=== PATIENT | female | born 1945 | race Caucasian/White ===

== ENCOUNTER → 2016-10-13 | Outpatient (CLI) | payer MEDICARE, MEDICAID ==
[~2016-10-13] MED LIST: AMBIEN 5MG TABLE5 MG PO; AMBIEN10 MG PO; ARICEPT10 MG PO; ARICEPT5 MG PO; ATIVAN 0.50.5 MG/TAB PO; CELEXA 20MG20 MG/TAB PO; CEPHALEXIN500 M1 PO; COLACE 100100 MG/CAP PO; CORRECTIVE LAXAT5 MG PO; CORRECTOL5 MG PO; DETROL LA4 PO; DULCOLAX S10 MG/SUPP RC; EC NAPROSYN500 MG PO; EXELON13.3TDM; FLONASE0.05 MG/AC NS; LEXAPRO10 MG PO; LEXAPRO5 MG PO; MACROBID 1100 MG/CAP PO; MACRODANTIN50 MG/CA1 PO; MIRALAX PA17 GM/Dose PO; MULTIPLE VITAMI1 CAP PO; NAMENDA 10MG TA10 MG PO; NAMENDA10 MG PO; NAMENDA5 MG PO; NORCO 325 MG-51 TAB; PRAVACHOL20 MG PO; PRILOSEC 20MG20 MG PO; PRILOSEC20 MG PO; RISPERDAL0.5 MG PO; RISPERDAL1 MG PO; ROXANOL 20MG20 MG/ML SL; SENOKOT TABLET1 EA PO; SEROQUEL 200MG200 MG PO; SINEMET CR1 UDTAB.S1 PO; TOVIAZ4 MG PO; TRANSDERM-0.5 MG/21 TD; TYLENOL 325MG325 MG PO; TYLENOL 500MG500 MG PO; ULTRAM 50MG TAB50 MG PO; VITAMIN C500 MG PO; VITAMIN D1000 IU PO
== END ==
LOC: ZCOL.LAB 02:30
DX: Z53.9 Procedure and treatment not carried out, unspecified reason (principal)

== ENCOUNTER → 2016-10-15 | Outpatient (CLI) | payer MEDICARE, MEDICAID ==
[2016-10-15 20:10] LABS: BASO % 0.6 % (0.0-2.0); EOS # 0.1 (0.0-0.7); EOS % 1.6 % (0-4.0); GRAN # 3.9 (1.4-6.5); GRAN % 62.8 % (42.2-75.2); HEMATOCRIT 40.6 % (37.0-47.0); LYMPH # 1.6 (1.2-3.4); LYMPH % 25.8 % (20.0-51.0); MEAN CELL VOLUME 92 fl (80.0-100.0); MEAN CORPUSCULAR HEMOGLOBIN 30 pg (27.0-31.0); MEAN CORPUSCULAR HGB CONC 32 g/dl (33.0-37.0); MEAN PLATELET VOLUME 11.4 fl (7.4-10.4); MONO # 0.6 (0.1-0.6); MONO % 8.9 % (1.7-9.3); PLATELET COUNT 237 K/mm3 (130-400); RED BLOOD COUNT 4.41 M/mm3 (4.10-5.30); REDCELL DISTRIBUTION WIDTH-CV 13.5 % (11.5-14.5); WHITE BLOOD COUNT 6.2 K/mm3 (4.8-10.8)
[2016-10-15 20:18] LABS: CALCIUM 8.6 mg/dL (8.4-10.2); CREATININE, serum 0.53 mg/dL (0.52-1.25); POTASSIUM 4.3 mmol/L (3.4-5.0)
== END ==
LOC: ZCOL.LAB 16:27
PROVIDERS: Family Medicine
DX: R63.5 Abnormal weight gain (principal)

== ENCOUNTER → 2017-01-18 | Outpatient (CLI) | payer MEDICARE, MEDICAID ==
[2017-01-19 00:06] LABS: BASO % 0.5 % (0.0-2.0); EOS # 0.1 (0.0-0.7); EOS % 2.1 % (0-4.0); GRAN # 3.3 (1.4-6.5); GRAN % 57.3 % (42.2-75.2); HEMATOCRIT 41.7 % (37.0-47.0); HEMOGLOBIN 13.6 g/dl (12.5-16.0); LYMPH # 1.7 (1.2-3.4); LYMPH % 28.5 % (20.0-51.0); MEAN CELL VOLUME 91 fl (80.0-100.0); MEAN CORPUSCULAR HEMOGLOBIN 30 pg (27.0-31.0); MEAN CORPUSCULAR HGB CONC 33 g/dl (33.0-37.0); MEAN PLATELET VOLUME 11.1 fl (7.4-10.4); MONO # 0.7 (0.1-0.6); MONO % 11.3 % (1.7-9.3); PLATELET COUNT 279 K/mm3 (130-400); RED BLOOD COUNT 4.58 M/mm3 (4.10-5.30); REDCELL DISTRIBUTION WIDTH-CV 13.2 % (11.5-14.5); WHITE BLOOD COUNT 5.8 K/mm3 (4.8-10.8)
== END ==
LOC: ZCOL.LAB 20:15
PROVIDERS: Family Medicine
DX: R68.89 Other general symptoms and signs (principal)

== ENCOUNTER 2017-04-23 21:20 | Inpatient (IN) | payer MEDICARE, MEDICAID ==
[~2017-04-23] VITALS: Ht 162.6 cm; Wt 87.2 kg
[~2017-04-23 21:20] MED LIST changes: -ATIVAN 0.50.5 MG/TAB PO; -MIRALAX PA17 GM/Dose PO; -ROXANOL 20MG20 MG/ML SL; -TRANSDERM-0.5 MG/21 TD; -ULTRAM 50MG TAB50 MG PO
[2017-04-23 22:04] LABS: HEMATOCRIT 45.8 % (37.0-47.0); HEMOGLOBIN 14.6 g/dl (12.5-16.0); MEAN CELL VOLUME 92 fl (80.0-100.0); MEAN CORPUSCULAR HEMOGLOBIN 29 pg (27.0-31.0); MEAN CORPUSCULAR HGB CONC 32 g/dl (33.0-37.0); PLATELET COUNT 163 K/mm3 (130-400); RED BLOOD COUNT 4.99 M/mm3 (4.10-5.30); REDCELL DISTRIBUTION WIDTH-CV 13.9 % (11.5-14.5)
[2017-04-23 22:09] LABS: WHITE BLOOD COUNT 24.4 K/mm3 (4.8-10.8)
[2017-04-23 22:10] LABS: ADD PATHOLOGY DIFF REVIEW NO
[2017-04-23 22:28] LABS: ADJUSTED CALCIUM 9.9 mg/dL (8.4-10.2); ALANINE AMINOTRANSFERASE 41 U/L (9-52); ALBUMIN 3.3 gm/dL (3.5-5.0); ALKALINE PHOSPHATASE 93 U/L (50-136); ANION GAP 20 mmol/L (7-16); BILIRUBIN,TOTAL 0.4 mg/dL (0.0-1.0); BLOOD UREA NITROGEN 24 mg/dL (7-17); CALCIUM 9.3 mg/dL (8.4-10.2); CHLORIDE 112 mmol/L (98-107); CREATININE, serum 1.25 mg/dL (0.52-1.25); GLUCOSE 250 mg/dL (74-106); POTASSIUM 3.7 mmol/L (3.4-5.0); SODIUM 146 mmol/L (137-145); TOTAL PROTEIN 6.1 gm/dL (6.4-8.2)
[2017-04-23 22:36] LABS: C-REACTIVE PROTEIN 5.5 mg/dL (0.0-0.9); CARBON DIOXIDE 14 mmol/L (22-30); LIPASE 43 U/L (23-300)
[2017-04-23 22:47] LABS: PROTHROMBIN TIME 11.5 SECONDS (9.7-12.8)
[2017-04-23 22:50] LABS: PARTIAL THROMBOPLASTIN TIME 19.9 SECONDS (26.0-37.0)
[2017-04-23 23:19] LABS: ARTERIAL BLD GAS O2 SATURATION 94.9 % (92-100); ARTERIAL BLD GAS TCO2 CT 11.2; ARTERIAL BLOOD GAS BASE EXCESS -11.9 (-2-2); ARTERIAL BLOOD GAS HCO3 10.6 meq/L (22-26); ARTERIAL BLOOD GAS PHT 7.38 C (7.35-7.45); ARTERIAL BLOOD GAS PO2 77.2 mmHg (80-100); ARTERIAL BLOOD GAS PO2T 77.2 (80-100); ARTERIAL BLOOD GAS pH 7.38 (7.35-7.45); OXYHEMOGLOBIN 94.3 %
[2017-04-23 23:20] LABS: ALLEN TEST YES; ALLENS TEST RESULT PASS; ATS? YES
[2017-04-23 23:36] LABS: THEOPHYLLINE < 1.0 ug/mL (10.0-20.0)
[2017-04-24] VITALS (1247 sets, daily range): BP systolic 94–116; BP diastolic 51–63; PULSE 104–126; TEMP 97.3–100; O2SAT 68–100
[2017-04-24 00:07] LABS: PH 6 (5-8); URINE APPEARANCE Turbid; URINE COLOR Red; URINE GLUCOSE Negative (NEGATIVE)
[2017-04-24 00:08] LABS: URINE KETONE 2+ (NEGATIVE)
[2017-04-24 00:09] LABS: URINE BLOOD 3+ (NEGATIVE); URINE UROBILINOGEN Negative (NEGATIVE)
[2017-04-24 00:10] LABS: URINE RBC >50 /hpf; URINE WBC 20-50 /hpf
[2017-04-24 00:11] LABS: URINE BACTERIA Moderate /hpf
[2017-04-24 01:09] LABS: BAND 29 % (0-10); METAMYELOCYTE 4 % (0-0); MYELOCYTE 1 % (0-0); NEUTROPHILS 58 % (42.0-75.2)
[2017-04-24 01:10] LABS: DOHLE BODIES PRESENT; PLATELET ESTIMATE NORMAL (NORMAL); TOTAL CELLS COUNTED 100; TOXIC GRANULATION PRESENT
[2017-04-24] MEDS ORDERED: MIRALAX PA17 GM/Dose PO (02:46)
[2017-04-24] MEDS ORDERED: ULTRAM 50MG TAB50 MG PO ×2 (02:47→02:50)
[2017-04-24] MEDS ORDERED: MACROBID 1100 MG/CAP PO (02:49)
[2017-04-24 06:14] LABS: HEMATOCRIT 37.8 % (37.0-47.0); MEAN CELL VOLUME 93 fl (80.0-100.0); MEAN CORPUSCULAR HEMOGLOBIN 30 pg (27.0-31.0); MEAN CORPUSCULAR HGB CONC 32 g/dl (33.0-37.0); MEAN PLATELET VOLUME 10.8 fl (7.4-10.4); PLATELET COUNT 134 K/mm3 (130-400); RED BLOOD COUNT 4.05 M/mm3 (4.10-5.30); REDCELL DISTRIBUTION WIDTH-CV 14.3 % (11.5-14.5)
[2017-04-24 06:16] LABS: ADD PATHOLOGY DIFF REVIEW NO; WHITE BLOOD COUNT 27.2 K/mm3 (4.8-10.8)
[2017-04-24 06:20] LABS: ALBUMIN 2.4 gm/dL (3.5-5.0); BILIRUBIN,TOTAL 0.4 mg/dL (0.0-1.0); CALCIUM 7.7 mg/dL (8.4-10.2); CREATININE, serum 0.93 mg/dL (0.52-1.25); POTASSIUM 3.5 mmol/L (3.4-5.0); TOTAL PROTEIN 4.9 gm/dL (6.4-8.2)
[2017-04-24 09:05] LABS: BAND 33 % (0-10); NEUTROPHILS 62 % (42.0-75.2); PLATELET ESTIMATE NORMAL (NORMAL); TOTAL CELLS COUNTED 100
[2017-04-24 09:06] LABS: OVALOCYTES 1+
[2017-04-25] VITALS (1268 sets, daily range): BP systolic 113–147; BP diastolic 70–91; PULSE 86–105; TEMP 98–99.2; O2SAT 62–100
[2017-04-25 07:54] LABS: MEAN CELL VOLUME 91 fl (80.0-100.0); MEAN CORPUSCULAR HGB CONC 33 g/dl (33.0-37.0); MEAN PLATELET VOLUME 11.4 fl (7.4-10.4); PLATELET COUNT 105 K/mm3 (130-400); RED BLOOD COUNT 3.88 M/mm3 (4.10-5.30); REDCELL DISTRIBUTION WIDTH-CV 14.7 % (11.5-14.5)
[2017-04-25 07:59] LABS: CALCIUM 7.9 mg/dL (8.4-10.2); CREATININE, serum 0.66 mg/dL (0.52-1.25); POTASSIUM 3.1 mmol/L (3.4-5.0)
[2017-04-25 08:00] LABS: HEMATOCRIT 35.3 % (37.0-47.0); HEMOGLOBIN 11.5 g/dl (12.5-16.0); MEAN CORPUSCULAR HEMOGLOBIN 30 pg (27.0-31.0); WHITE BLOOD COUNT 25.2 K/mm3 (4.8-10.8)
[2017-04-26] VITALS (322 sets, daily range): BP systolic 121–151; BP diastolic 57–96; PULSE 88–97; TEMP 98.4–100.9; O2SAT 92–100
[2017-04-26 08:31] LABS: CALCIUM 7.6 mg/dL (8.4-10.2); CREATININE, serum 0.53 mg/dL (0.52-1.25); POTASSIUM 3.4 mmol/L (3.4-5.0)
[2017-04-26 08:41] LABS: MEAN CELL VOLUME 91 fl (80.0-100.0); MEAN CORPUSCULAR HGB CONC 33 g/dl (33.0-37.0); MEAN PLATELET VOLUME 12.3 fl (7.4-10.4); PLATELET COUNT 102 K/mm3 (130-400); RED BLOOD COUNT 3.88 M/mm3 (4.10-5.30); REDCELL DISTRIBUTION WIDTH-CV 14.6 % (11.5-14.5)
[2017-04-26 08:58] LABS: HEMATOCRIT 35.1 % (37.0-47.0); HEMOGLOBIN 11.4 g/dl (12.5-16.0); MEAN CORPUSCULAR HEMOGLOBIN 29 pg (27.0-31.0); WHITE BLOOD COUNT 21.4 K/mm3 (4.8-10.8)
[2017-04-26 08:59] LABS: ADD PATHOLOGY DIFF REVIEW NO
[2017-04-26 09:07] LABS: BAND 20 % (0-10); NEUTROPHILS 66 % (42.0-75.2); PLATELET ESTIMATE DECREASED (NORMAL); TOTAL CELLS COUNTED 100
[2017-04-27] MEDS ORDERED: ROXANOL 20MG20 MG/ML SL (11:37)
[2017-04-27] MEDS ORDERED: ATIVAN 0.50.5 MG/TAB PO (11:37)
[2017-04-27] MEDS ORDERED: TRANSDERM-0.5 MG/21 TD (11:39)
[2017-04-27 12:08] VITALS: BP 125/57; PULSE 92; TEMP 100.9
== END 2017-04-27 14:00 | disposition hospice, inpatient (51) | DRG 871 ==
LOC: COL.ER 21:20 → ICU 04-24 00:11 → MEDICAL 04-26 15:18
PROVIDERS: Emergency Medicine; Family Medicine; Internal Medicine Cardiovascular Disease
DX: A41.9 Sepsis, unspecified organism (principal); J18.9 Pneumonia, unspecified organism; N39.0 Urinary tract infection, site not specified; Z51.5 Encounter for palliative care; Z66 Do not resuscitate; F03.90 Unspecified dementia, unspecified severity, without behavioral disturbance, psychotic disturbance, mood disturbance, and anxiety; G20 Parkinson's disease; L89.159 Pressure ulcer of sacral region, unspecified stage
CPT/HCPCS: 99222-AI; 99232-AI; 99233-AI; 99239; J1650; J1956; J2185; J2270; J3370; J3480; J7030; J7050

== ENCOUNTER → 2017-04-23 | Outpatient (CLI) | payer MEDICARE, MEDICAID ==
[2017-04-23 23:31] LABS: URINE COLOR Red
[2017-04-23 23:32] LABS: PH 8 (5-8); URINE APPEARANCE Turbid; URINE BILIRUBIN Negative (NEGATIVE); URINE BLOOD 3+ (NEGATIVE); URINE GLUCOSE Negative (NEGATIVE); URINE KETONE Negative (NEGATIVE); URINE UROBILINOGEN Negative (NEGATIVE)
[2017-04-23 23:36] LABS: SQUAMOUS EPITHELIAL 20-50 /hpf; URINE RBC >50 /hpf; URINE TRIPLE PHOSPHATE CRYSTAL Present /hpf; URINE WBC 20-50 /hpf
[2017-04-23 23:37] LABS: URINE BACTERIA Many /hpf; URINE URIC ACID CRYSTAL Present /hpf
== END ==
LOC: ZCOL.LAB 17:37
PROVIDERS: Family Medicine
DX: Z87.440 Personal history of urinary (tract) infections (principal)